=== PATIENT | female | born 1990 | race Caucasian/White ===

== ENCOUNTER 2016-09-08 17:19 | Emergency (ER) | payer BC ==
[2016-09-08 17:36] VITALS: BP 126/76
--- NOTE | 2016-09-08 18:05 | EDM.PDOC ---
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 Tillman for her annual women's physical. She found to be today and was told her "Hcg level was elevated." She says she was unsure what this meant so she started googling it. She is worried about a molar . She has had some mild pelvic cramping for the past 3 days as well. She has a history of ovarian cysts. She denies any vaginal bleeding or spotting recently. She did have spotting on 08/21/16 for 1 day which resolved on it's own. No spotting since that time. Her LMP was . Her periods are typically regular and last 7 days. Her last period was described as normal. This is her first . No urinary symptoms. No nausea or vomiting. She is hoping for an ultrasound today to make sure everything is ok and for dating purposes. Lower Abdomen Pain Score (Numeric/FACES): 7 - Related Data Allergies Allergy/AdvReac Type Severity Reaction Status Date / Time No Known Allergies Allergy Verified 09/08/16 17:36 Home Meds: Home Meds . 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 Denies: Fever, Chills Respiratory: Reports: No Symptoms Cardiovascular: Reports: No Symptoms GI/Abdominal: Reports: No Symptoms. Denies: Nausea, Vomiting : Reports: Other (pelvic cramping). Denies: Dysuria, Flank Pain ED EXAM - Physical Exam Exam: See Below Exam Limited By: No Limitations General Appearance: Alert, WD/WN, No Apparent Distress, Anxious Respiratory/Chest: No Respiratory Distress, Lungs Clear, Normal Breath Sounds Cardiovascular: Regular Rate, Rhythm GI/Abdominal: Normal Bowel Sounds, Soft, Non-Tender. No: Guarding, Rigid, Rebound, Tender (Female) Exam: Other (deferred, no indication for pelvic exam. no tenderness with palpation of the pelvic region. no guarding. no rigidity.) Back Exam: Normal Inspection, Full Range of Motion. No: CVA Tenderness (L), CVA Tenderness (R) Neurological: Alert, Oriented, Normal Cognition Course - Vital Signs Last Recorded V/S: Last Vital Signs Temp 97.4 F 09/08/16 17:32 Pulse 100 09/08/16 17:32 Resp 18 09/08/16 17:32 BP 126/76 09/08/16 17:32 Pulse Ox 100 09/08/16 17:32 - Re-Assessments/Exams Free Text/Narrative Re-Assessment/Exam: Patient was concerned about her elevated Hcg level. She was under the impression that this was an abnormal finding and that something was wrong. She was educated on concerning findings like increasing pain and vaginal bleeding. Considering she had regular periods, the dating of her by her LMP is likely very accurate. There is no indication for emergency OB ultrasound. I explained that we do not do ultrasounds for dating in the ED. She was reassured and educated on hcg levels and expectations during early . She was instructed to f/u with Dr. Dunbar as directed. She has an early ultrasound scheduled for two weeks from now. Departure - Departure Time of Disposition: 18:04 Disposition: Home, Self-Care 01 Condition: good Clinical Impression: Pelvic cramping Qualifiers: Weeks of gestation: less than 8 weeks Qualified Code(s): Z3A.01 - Less than 8 weeks gestation of - Discharge Information Instructions: Pelvic Pain, Female, [id number] Referrals: PCP,None [Primary Care Provider] - Forms: ED Department Discharge Additional Instructions: Follow-up with Dr. Dunbar as directed Keep ultrasound appointment Tylenol 650mg every 4-6 hours as needed for pain Return to ER or clinic if you develop severe or worsening pain or if you have any vaginal bleeding
== END 2016-09-08 18:12 | disposition home or self-care (01) ==
LOC: JD.ED 17:19
DX: O99.89 Other specified diseases and conditions complicating pregnancy, childbirth and the puerperium (principal); R10.2 Pelvic and perineal pain; Z3A.01 Less than 8 weeks gestation of pregnancy; Z87.891 Personal history of nicotine dependence
CPT/HCPCS: 99282